=== PATIENT | female | born 1980 | race Caucasian/White ===

== ENCOUNTER 2022-10-25 18:09 | Emergency (ER) | payer BC ==
[2022-10-25 18:22] VITALS: RESP 18; BMI 25.6
[2022-10-25 19:43] VITALS: BP 136/90; PULSE 100; TEMP 97.6
[2022-10-25] MEDS ORDERED: KETOROLAC TROMETHAMINE 30 MG/1 ML VIAL IM ONE (20:03)
[2022-10-25] MEDS ORDERED: KETOROLAC TROMETHAMINE 30 MG/1 ML VIAL ONE (20:13)
== END 2022-10-25 20:28 | disposition home or self-care (01) ==
LOC: JER 18:09
PROC: 3E0233Z Introduction of Anti-inflammatory into Muscle, Percutaneous Approach (ICD-10-PCS; principal; 2022-10-25)
DX: M54.31 Sciatica, right side (principal); M54.32 Sciatica, left side; G89.29 Other chronic pain
CPT/HCPCS: 99284-25